=== PATIENT | female | born 1970 | race Two or more races ===

== ENCOUNTER 2021-04-04 13:46 | Inpatient (IN) | payer MEDICAID ==
[~2021-04-04] VITALS: Ht 157.5 cm; Wt 96.2 kg
[2021-04-04] MEDS ORDERED: methylPREDNISolone SOD SUCC 125 MG/2 ML VL IV ONE (14:15)
[2021-04-04 14:37] LABS: Basophils # (auto) 0 10 ^3/uL (0-0.2); Basophils % (auto) 0.2 % (0.0-2.0); Eosinophils # (auto) 0 10 ^3/uL (0-0.8); Eosinophils % (auto) 0.4 % (0.0-7.0); Hematocrit 41.3 % (36.0-46.0); Lymphocytes # (auto) 1.2 10 ^3/uL (0.4-5.4); Lymphocytes % (auto) 16.1 % (10.0-50.0); Mean Corpuscular Hemoglobin 27.3 pg (28.0-32.0); Mean Corpuscular Hgb Conc. 33.8 g/dL (32.0-36.0); Mean Corpuscular Volume 80.6 fL (80.0-100.0); Monocytes # (auto) 0.8 10 ^3/uL (0-1.3); Monocytes % (auto) 11.5 % (0.0-12.0); Neutrophils # (auto) 5.2 10 ^3/uL (1.6-8.6); Neutrophils % (auto) 71.8 % (37.0-80.0); Nucleated Red Blood Cells % 0.1 %; Red Blood Cells 5.12 10^6/uL (4.0-5.20); Red Cell Distribution Width 14.9 % (11.8-14.3); White Blood Cell 7.2 10^3/uL (4.4-10.8)
[2021-04-04 14:54] LABS: Albumin 2.9 g/dL (3.4-5.0); Calcium 8.6 mg/dL (8.5-10.1); Potassium 3.3 mmol/L (3.5-5.1)
[2021-04-04 14:57] LABS: BUN/Creatinine Ratio 18.4; Bilirubin, Total 0.6 mg/dL (0.2-1.0); Total Protein 7.8 g/dL (6.4-8.2)
[2021-04-04] MEDS ORDERED: AZITHROMYCIN 500MG/ 250ML 250 ML IV ONE (17:30)
[2021-04-04] MEDS ORDERED: POTASSIUM CHL 20 Meq TABLET PO ONE (17:45)
[2021-04-04] MEDS ORDERED: MORPHINE SULFATE INJECTION 2 MG/ML SYRG IV PRN (18:30)
[2021-04-04] MEDS ORDERED: NITROGLYCERIN 0.4 MG SL TAB SL PRN (18:30)
[2021-04-04] MEDS ORDERED: REMDESIVIR PER PHARMACY 0 ML IV SCH (19:45)
[2021-04-04] MEDS ORDERED: ACETAMINOPHEN 500 MG TAB PO PRN (19:45)
[2021-04-04 20:36] LABS: Basophils # (auto) 0 10 ^3/uL (0-0.2); Eosinophils # (auto) 0 10 ^3/uL (0-0.8); Eosinophils % (auto) 0.1 % (0.0-7.0); Lymphocytes # (auto) 0.6 10 ^3/uL (0.4-5.4); Nucleated Red Blood Cells % 0.1 %
[2021-04-04 20:38] LABS: Basophils % (auto) 0.1 % (0.0-2.0); Hematocrit 40.9 % (36.0-46.0); Hemoglobin 13.6 g/dL (12.2-16.2); Lymphocytes % (auto) 11.4 % (10.0-50.0); Mean Corpuscular Hemoglobin 26.9 pg (28.0-32.0); Mean Corpuscular Hgb Conc. 33.3 g/dL (32.0-36.0); Mean Corpuscular Volume 80.7 fL (80.0-100.0); Monocytes # (auto) 0.2 10 ^3/uL (0-1.3); Monocytes % (auto) 4.3 % (0.0-12.0); Neutrophils # (auto) 4.6 10 ^3/uL (1.6-8.6); Neutrophils % (auto) 84.1 % (37.0-80.0); Red Blood Cells 5.07 10^6/uL (4.0-5.20); Red Cell Distribution Width 14.9 % (11.8-14.3); White Blood Cell 5.5 10^3/uL (4.4-10.8)
[2021-04-04 20:51] LABS: Albumin 2.9 g/dL (3.4-5.0); Calcium 8.8 mg/dL (8.5-10.1)
[2021-04-04 21:00] LABS: BUN/Creatinine Ratio 20.5; Bilirubin, Total 0.5 mg/dL (0.2-1.0); CRP High Sensitivity 7.32 mg/dL (< 0.3); Total Protein 7.9 g/dL (6.4-8.2)
[2021-04-04 21:19] LABS: Thyroid Stimulating Hormone 0.13 uIU/mL (0.358-3.74)
[2021-04-04] MEDS: ENOXAPARIN SOD 40 MG/0.4 ML SYRINGE SC SCH (22:00)
[2021-04-04] MEDS: BUDESONIDE (INHALATION) 180 MCG IH IN SCH (22:00)
[2021-04-05] MEDS ORDERED: HYDROcodone-ACET 5/325MG TAB PO PRN (04:15)
[2021-04-05] MEDS ORDERED: FAMOTIDINE (10MG/ML) 2ML VL IV ONE (04:15)
[2021-04-05] MEDS ORDERED: MORPHINE SULFATE INJECTION 2 MG/ML SYRG IV PRN (04:15)
[2021-04-05] MEDS ORDERED: HYDROcodone-ACET 5/325MG TAB PO ONE (04:15)
[2021-04-05] MEDS ORDERED: DEXTROSE (50%) 50ML SYRG IV PRN (04:15)
[2021-04-05] MEDS ORDERED: ALBUMIN 25% 100 ML IV ONE (04:15)
[2021-04-05] MEDS ORDERED: ONDANSETRON HCL 4 MG/2 ML VIAL IV PRN (04:15)
[2021-04-05] MEDS ORDERED: DOCUSATE SOD 100 MG CAP PO PRN (04:15)
[2021-04-05 04:19] VITALS: BP 143/81
[2021-04-05 05:00] VITALS: BP 120/63
[2021-04-05 05:25] LABS: Basophils # (auto) 0 10 ^3/uL (0-0.2); Basophils % (auto) 0.8 % (0.0-2.0); Eosinophils # (auto) 0 10 ^3/uL (0-0.8); Hematocrit 39.3 % (36.0-46.0); Hemoglobin 13.4 g/dL (12.2-16.2); Lymphocytes # (auto) 0.7 10 ^3/uL (0.4-5.4); Lymphocytes % (auto) 14.8 % (10.0-50.0); Mean Corpuscular Hemoglobin 27.2 pg (28.0-32.0); Mean Corpuscular Hgb Conc. 34.1 g/dL (32.0-36.0); Mean Corpuscular Volume 79.7 fL (80.0-100.0); Monocytes # (auto) 0.4 10 ^3/uL (0-1.3); Monocytes % (auto) 9.7 % (0.0-12.0); Neutrophils # (auto) 3.3 10 ^3/uL (1.6-8.6); Neutrophils % (auto) 74.7 % (37.0-80.0); Nucleated Red Blood Cells % 0.2 %; Red Blood Cells 4.93 10^6/uL (4.0-5.20); Red Cell Distribution Width 14.8 % (11.8-14.3); White Blood Cell 4.4 10^3/uL (4.4-10.8)
[2021-04-05 05:40] LABS: INR 1.08 (0.9-1.15); Partial Thromboplastin Time 27.6 sec (23.6-33.0)
[2021-04-05 05:49] LABS: Potassium 3.9 mmol/L (3.5-5.1)
[2021-04-05 05:56] LABS: Albumin 2.7 g/dL (3.4-5.0); Bilirubin, Total 0.4 mg/dL (0.2-1.0); Calcium 8.6 mg/dL (8.5-10.1); Total Protein 7.5 g/dL (6.4-8.2)
[2021-04-05] MEDS ORDERED: FUROSEMIDE 20 MG/2 ML VIAL IV SCH (06:00)
[2021-04-05] MEDS: ACCU-CHEK COMFORT CURVE STRIP VI SCH ×4 (06:33→22:31)
[2021-04-05] MEDS: InsuLIN REG 1unit/0.01ml Soln (100units/ml) SC SCH ×4 (06:54→22:33)
[2021-04-05 08:30] VITALS: BP 117/74
[2021-04-05] MEDS: AZITHROMYCIN 500MG/ 250ML 250 ML IV SCH (09:52)
[2021-04-05] MEDS: FAMOTIDINE (10MG/ML) 2ML VL IV SCH (09:52)
[2021-04-05] MEDS: DexAMETHasone SOD PHOS 10MG/1ML VIAL INJ IV SCH (09:52)
[2021-04-05] MEDS: ZINC SULFATE 220mg CAP or TAB PO SCH (09:52)
[2021-04-05] MEDS: CHOLECALCIFEROL (VITD3) 2,000 UNIT CAP/TAB PO SCH (09:55)
[2021-04-05] MEDS: ASCORBIC ACID 1,000 MG TAB PO SCH (09:55)
[2021-04-05] MEDS: ENOXAPARIN SOD 40 MG/0.4 ML SYRINGE SC SCH ×2 (09:56→22:30)
[2021-04-05 09:59] LABS: Free T4 (Free Thyroxine) 1.74 ng/dL (0.89-1.76)
[2021-04-05 10:00] LABS: Free T3 2.08 pg/mL (2.3-4.2)
[2021-04-05] MEDS ORDERED: POTASSIUM CHL 20 Meq TABLET PO SCH (10:00)
[2021-04-05] MEDS: ASPirin 81 mg TAB PO SCH (10:00)
[2021-04-05] MEDS: BUDESONIDE (INHALATION) 180 MCG IH IN SCH ×2 (10:00→20:30)
[2021-04-05] MEDS ORDERED: ALBUMIN 25% 100 ML IV SCH (12:00)
[2021-04-05 12:30] VITALS: BP 120/72
[2021-04-05] MEDS ORDERED: REMDESIVIR 200 MG in NS 210ml LOADING DOSE ADULT IV ONE (15:00)
[2021-04-05 17:00] VITALS: BP 105/60
[2021-04-05] MEDS: ALBUTEROL SULF HFA 90MCG INH 200DOSE IN PRN (20:30)
[2021-04-05 22:00] VITALS: BP 118/66
[2021-04-05] MEDS: ATORVASTATIN 20 MG TAB PO SCH (22:30)
[2021-04-06 05:00] VITALS: BP_SYST 122; BP_SYST 135; BP_DIAS 67; BP_DIAS 69
[2021-04-06] MEDS: ACCU-CHEK COMFORT CURVE STRIP VI SCH ×4 (05:59→21:45)
[2021-04-06] MEDS: InsuLIN REG 1unit/0.01ml Soln (100units/ml) SC SCH ×4 (06:15→21:48)
[2021-04-06 07:24] LABS: Potassium 3.4 mmol/L (3.5-5.1)
[2021-04-06 08:02] LABS: BUN/Creatinine Ratio 41.5; Bilirubin, Total 0.5 mg/dL (0.2-1.0); Calcium 9.5 mg/dL (8.5-10.1)
[2021-04-06 09:00] VITALS: BP 126/86
[2021-04-06] MEDS: FAMOTIDINE (10MG/ML) 2ML VL IV SCH (10:00)
[2021-04-06] MEDS: CHOLECALCIFEROL (VITD3) 2,000 UNIT CAP/TAB PO SCH (10:00)
[2021-04-06] MEDS: DexAMETHasone SOD PHOS 10MG/1ML VIAL INJ IV SCH (10:00)
[2021-04-06] MEDS: ASCORBIC ACID 1,000 MG TAB PO SCH (10:00)
[2021-04-06] MEDS: ASPirin 81 mg TAB PO SCH (10:00)
[2021-04-06] MEDS: ENOXAPARIN SOD 40 MG/0.4 ML SYRINGE SC SCH ×2 (10:00→21:45)
[2021-04-06] MEDS: AZITHROMYCIN 500MG/ 250ML 250 ML IV SCH (10:00)
[2021-04-06] MEDS: ZINC SULFATE 220mg CAP or TAB PO SCH (10:00)
[2021-04-06] MEDS: BUDESONIDE (INHALATION) 180 MCG IH IN SCH ×2 (10:26→10:28)
[2021-04-06] MEDS: ALBUTEROL SULF HFA 90MCG INH 200DOSE IN PRN ×3 (10:27→21:25)
[2021-04-06] MEDS ORDERED: PROMETHAZINE W/CODEINE 5 ML ORAL SYRUP PO PRN (11:30)
[2021-04-06] MEDS ORDERED: POTASSIUM CHL 20 Meq TABLET PO ONE (11:30)
[2021-04-06 13:00] VITALS: BP 128/88
[2021-04-06] MEDS ORDERED: REMDESIVIR 100mg 100 MG in SODIUM CHL 0.9% 230 ML IV SCH (15:00)
[2021-04-06 17:00] VITALS: BP 115/77
[2021-04-06] MEDS: REMDESIVIR 100mg 100 MG in SODIUM CHL 0.9% 230 ML IV SCH (18:34)
[2021-04-06] MEDS: ATORVASTATIN 20 MG TAB PO SCH (21:45)
[2021-04-06 22:00] VITALS: BP 120/73
[2021-04-07 05:00] VITALS: BP 132/82
[2021-04-07] MEDS: InsuLIN REG 1unit/0.01ml Soln (100units/ml) SC SCH ×4 (06:11→21:21)
[2021-04-07] MEDS: ACCU-CHEK COMFORT CURVE STRIP VI SCH ×4 (06:11→21:20)
[2021-04-07] MEDS: LEVOTHYROXINE SODIUM 112 MCG TAB PO SCH (06:11)
[2021-04-07] MEDS: BUDESONIDE (INHALATION) 180 MCG IH IN SCH ×2 (06:18→10:00)
[2021-04-07 06:56] LABS: Albumin 2.7 g/dL (3.4-5.0); Calcium 8.4 mg/dL (8.5-10.1)
[2021-04-07 07:02] LABS: BUN/Creatinine Ratio 30.8; Bilirubin, Total 0.4 mg/dL (0.2-1.0); Total Protein 6.8 g/dL (6.4-8.2)
[2021-04-07 09:00] VITALS: BP 131/77
[2021-04-07] MEDS: AZITHROMYCIN 500MG/ 250ML 250 ML IV SCH (09:54)
[2021-04-07] MEDS: DexAMETHasone SOD PHOS 10MG/1ML VIAL INJ IV SCH (09:54)
[2021-04-07] MEDS: CHOLECALCIFEROL (VITD3) 2,000 UNIT CAP/TAB PO SCH (09:54)
[2021-04-07] MEDS: ASPirin 81 mg TAB PO SCH (09:54)
[2021-04-07] MEDS: ENOXAPARIN SOD 40 MG/0.4 ML SYRINGE SC SCH ×2 (09:54→21:20)
[2021-04-07] MEDS: ASCORBIC ACID 1,000 MG TAB PO SCH (09:54)
[2021-04-07] MEDS: ZINC SULFATE 220mg CAP or TAB PO SCH (09:54)
[2021-04-07] MEDS: FAMOTIDINE (10MG/ML) 2ML VL IV SCH (09:54)
[2021-04-07] MEDS: ALBUTEROL SULF HFA 90MCG INH 200DOSE IN PRN ×2 (12:34→21:47)
[2021-04-07 13:00] VITALS: BP 136/82
[2021-04-07] MEDS: REMDESIVIR 100mg 100 MG in SODIUM CHL 0.9% 230 ML IV SCH (15:30)
[2021-04-07 17:00] VITALS: BP 133/77
[2021-04-07] MEDS: SALINE 0.65 % NASAL SPRAY 45ML BOTTLE EACHNOSTRI SCH (21:19)
[2021-04-07] MEDS: ATORVASTATIN 20 MG TAB PO SCH (21:19)
[2021-04-07 22:06] VITALS: BP 119/67
[2021-04-08 05:33] VITALS: BP 149/84
[2021-04-08] MEDS: InsuLIN REG 1unit/0.01ml Soln (100units/ml) SC SCH ×4 (06:01→21:03)
[2021-04-08] MEDS: LEVOTHYROXINE SODIUM 112 MCG TAB PO SCH (06:01)
[2021-04-08] MEDS: ACCU-CHEK COMFORT CURVE STRIP VI SCH ×4 (06:01→21:03)
[2021-04-08] MEDS: SALINE 0.65 % NASAL SPRAY 45ML BOTTLE EACHNOSTRI SCH ×4 (06:01→21:02)
[2021-04-08] MEDS: ALBUTEROL SULF HFA 90MCG INH 200DOSE IN PRN ×2 (07:09→19:18)
[2021-04-08 07:25] LABS: Potassium 3.8 mmol/L (3.5-5.1)
[2021-04-08 07:34] LABS: Albumin 2.9 g/dL (3.4-5.0); BUN/Creatinine Ratio 46.2; Bilirubin, Total 0.4 mg/dL (0.2-1.0); Calcium 8.4 mg/dL (8.5-10.1)
[2021-04-08 09:00] VITALS: BP 146/78
[2021-04-08] MEDS: ASCORBIC ACID 1,000 MG TAB PO SCH (09:08)
[2021-04-08] MEDS: DexAMETHasone SOD PHOS 10MG/1ML VIAL INJ IV SCH (09:08)
[2021-04-08] MEDS: FAMOTIDINE 20 MG TAB PO SCH (09:08)
[2021-04-08] MEDS: ASPirin 81 mg TAB PO SCH (09:08)
[2021-04-08] MEDS: CHOLECALCIFEROL (VITD3) 2,000 UNIT CAP/TAB PO SCH (09:08)
[2021-04-08] MEDS: ENOXAPARIN SOD 40 MG/0.4 ML SYRINGE SC SCH ×2 (09:08→21:02)
[2021-04-08] MEDS: ZINC SULFATE 220mg CAP or TAB PO SCH (09:08)
[2021-04-08] MEDS: AZITHROMYCIN 500MG/ 250ML 250 ML IV SCH (09:09)
[2021-04-08] MEDS ORDERED: SEMA2INJ SC (12:36)
[2021-04-08] MEDS ORDERED: ASCO500T11 PO (12:36)
[2021-04-08] MEDS ORDERED: LOSA25TA38 PO (12:36)
[2021-04-08] MEDS ORDERED: LEV150T PO (12:36)
[2021-04-08] MEDS ORDERED: CHOL20007 PO (12:36)
[2021-04-08] MEDS ORDERED: LORA10CA12 PO (12:36)
[2021-04-08 13:00] VITALS: BP 141/88
[2021-04-08 14:44] VITALS: BP 122/68
[2021-04-08] MEDS: REMDESIVIR 100mg 100 MG in SODIUM CHL 0.9% 230 ML IV SCH (14:45)
[2021-04-08 17:00] VITALS: BP 136/85
[2021-04-08] MEDS: BUDESONIDE (INHALATION) 180 MCG IH IN SCH (19:17)
[2021-04-08] MEDS: ATORVASTATIN 20 MG TAB PO SCH (21:02)
[2021-04-08 22:16] VITALS: BP 129/72
[2021-04-09 05:16] VITALS: BP 138/84
[2021-04-09] MEDS: SALINE 0.65 % NASAL SPRAY 45ML BOTTLE EACHNOSTRI SCH ×2 (05:34→11:45)
[2021-04-09] MEDS: LEVOTHYROXINE SODIUM 112 MCG TAB PO SCH (06:00)
[2021-04-09] MEDS: ACCU-CHEK COMFORT CURVE STRIP VI SCH ×2 (06:00→11:30)
[2021-04-09] MEDS: InsuLIN REG 1unit/0.01ml Soln (100units/ml) SC SCH ×2 (06:00→11:30)
[2021-04-09 07:01] LABS: Albumin 2.8 g/dL (3.4-5.0); Calcium 8.7 mg/dL (8.5-10.1)
[2021-04-09 07:03] LABS: BUN/Creatinine Ratio 40.9
[2021-04-09 07:06] LABS: Bilirubin, Total 0.4 mg/dL (0.2-1.0); Total Protein 6.7 g/dL (6.4-8.2)
[2021-04-09 09:00] VITALS: BP 139/79
[2021-04-09] MEDS: ZINC SULFATE 220mg CAP or TAB PO SCH (09:35)
[2021-04-09] MEDS: ASCORBIC ACID 1,000 MG TAB PO SCH (09:35)
[2021-04-09] MEDS: FAMOTIDINE 20 MG TAB PO SCH (09:36)
[2021-04-09] MEDS: CHOLECALCIFEROL (VITD3) 2,000 UNIT CAP/TAB PO SCH (09:36)
[2021-04-09] MEDS: ASPirin 81 mg TAB PO SCH (09:36)
[2021-04-09] MEDS: ENOXAPARIN SOD 40 MG/0.4 ML SYRINGE SC SCH (09:36)
[2021-04-09] MEDS: AZITHROMYCIN 500MG/ 250ML 250 ML IV SCH (09:43)
[2021-04-09] MEDS: BUDESONIDE (INHALATION) 180 MCG IH IN SCH (09:49)
[2021-04-09] MEDS: ALBUTEROL SULF HFA 90MCG INH 200DOSE IN PRN (09:50)
[2021-04-09] MEDS ORDERED: DexAMETHasone SOD PHOS 4 MG/1ML SDV INJ IV SCH (10:00)
[2021-04-09] MEDS ORDERED: ASPI-498 OR (12:56)
[2021-04-09] MEDS ORDERED: DEX4T PO (12:56)
[2021-04-09] MEDS ORDERED: CHOL1CAP47 PO (12:56)
[2021-04-09] MEDS ORDERED: ASCO10003 PO (12:56)
[2021-04-09 13:00] VITALS: BP 148/86
[2021-04-09] MEDS: REMDESIVIR 100mg 100 MG in SODIUM CHL 0.9% 230 ML IV SCH (14:36)
[2021-04-09 14:51] VITALS: BP 132/81
== END 2021-04-09 16:40 | disposition home or self-care (01) | DRG 720 ==
LOC: ER 13:46 → TELE 18:20 → TELE-EAST 04-05 02:50
PROVIDERS: ADMIT Hospitalist; ATTEND Internal Medicine
PROC: XW033E5 Introduction of Remdesivir Anti-infective into Peripheral Vein, Percutaneous Approach, New Technology Group 5 (ICD-10-PCS; principal; 2021-04-05)
DX: A41.89 Other specified sepsis (principal); J96.01 Acute respiratory failure with hypoxia; J12.82 Pneumonia due to coronavirus disease 2019; U07.1 COVID-19; D89.834 Cytokine release syndrome, grade 4; J44.0 Chronic obstructive pulmonary disease with (acute) lower respiratory infection; E11.9 Type 2 diabetes mellitus without complications; E66.01 Morbid (severe) obesity due to excess calories; K21.9 Gastro-esophageal reflux disease without esophagitis; K29.70 Gastritis, unspecified, without bleeding; E78.5 Hyperlipidemia, unspecified; E03.9 Hypothyroidism, unspecified; I10 Essential (primary) hypertension; Z68.38 Body mass index [BMI] 38.0-38.9, adult; Z90.710 Acquired absence of both cervix and uterus; Z79.899 Other long term (current) drug therapy; Z82.3 Family history of stroke; Z79.82 Long term (current) use of aspirin
CPT/HCPCS: 36415; 36600; 71045; 80053; 80061; 82270; 82728; 82805; 82962; 83036; 83605; 83615; 83735; 83880; 84100; 84439; 84443; 84481; 84484; 85025; 85379; 85610; 85652; 85730; 86141; 87040; 87426; 93005; 94640; 96365; 96375; 99291; G0378; J1100; J1815; J3490; P9047

== ENCOUNTER 2021-04-26 13:34 | Emergency (ER) | payer MEDICAID, OTHER ==
[~2021-04-26] VITALS: Ht 162.6 cm; Wt 102.5 kg
[~2021-04-26 13:34] MED LIST: ASCO10003 PO; ASCO500T11 PO; ASPI-498 OR; CHOL1CAP47 PO; CHOL20007 PO; DEX4T PO; LEV150T PO; LORA10CA12 PO; LOSA25TA38 PO; SEMA2INJ SC
[2021-04-26 14:15] LABS: Basophils # (auto) 0 10 ^3/uL (0-0.2); Basophils % (auto) 0.4 % (0.0-2.0); Eosinophils # (auto) 0.2 10 ^3/uL (0-0.8); Eosinophils % (auto) 2.1 % (0.0-7.0); Hemoglobin 13.9 g/dL (12.2-16.2); Lymphocytes # (auto) 2.6 10 ^3/uL (0.4-5.4); Lymphocytes % (auto) 29.2 % (10.0-50.0); Mean Corpuscular Hemoglobin 27.4 pg (28.0-32.0); Mean Corpuscular Hgb Conc. 33.1 g/dL (32.0-36.0); Mean Corpuscular Volume 82.8 fL (80.0-100.0); Monocytes # (auto) 0.7 10 ^3/uL (0-1.3); Monocytes % (auto) 8.1 % (0.0-12.0); Neutrophils # (auto) 5.3 10 ^3/uL (1.6-8.6); Neutrophils % (auto) 60.2 % (37.0-80.0); Red Blood Cells 5.07 10^6/uL (4.0-5.20); Red Cell Distribution Width 16.3 % (11.8-14.3); White Blood Cell 8.8 10^3/uL (4.4-10.8)
[2021-04-26 14:45] LABS: Alanine Aminotransferase 57 U/L (13-56); Albumin 3.3 g/dL (3.4-5.0); Anion Gap 6 (5-15); Aspartate Aminotransferase 42 U/L (15-37); BUN/Creatinine Ratio 14.3; Blood Urea Nitrogen 9 mg/dL (7-18); Calcium 8.6 mg/dL (8.5-10.1); Carbon Dioxide 25 mmol/L (21-32); Chloride 104 mmol/L (98-107); GFR African American 129 mL/min; GFR Non-African American 107 mL/min; Glucose 191 mg/dL (74-106); Potassium 4.5 mmol/L (3.5-5.1); Sodium 135 mmol/L (136-145)
[2021-04-26 14:47] LABS: Alkaline Phosphatase 99 U/L (45-117); Bilirubin, Total 0.5 mg/dL (0.2-1.0); Total Protein 7.4 g/dL (6.4-8.2)
[2021-04-26 15:06] VITALS: BP 115/55
== END 2021-04-26 15:11 | disposition home or self-care (01) ==
LOC: ER 13:34
DX: F41.9 Anxiety disorder, unspecified (principal); E11.9 Type 2 diabetes mellitus without complications; E78.5 Hyperlipidemia, unspecified; I10 Essential (primary) hypertension; Z90.710 Acquired absence of both cervix and uterus; Z90.89 Acquired absence of other organs; Z88.8 Allergy status to other drugs, medicaments and biological substances; V43.52XA Car driver injured in collision with other type car in traffic accident, initial encounter; Y93.89 Activity, other specified; Y92.410 Unspecified street and highway as the place of occurrence of the external cause; Y99.8 Other external cause status
CPT/HCPCS: 36415; 70450; 80053; 85025; 93005

== ENCOUNTER 2023-12-30 08:28 | Emergency (ER) | payer MEDICAID ==
[~2023-12-30] VITALS: Ht 162.6 cm; Wt 104.8 kg
[~2023-12-30 08:28] MED LIST changes: +BACDST PO; +IBUP-1456 PO; +LOS25T PO; +LOSA-533 PO; -LOSA25TA38 PO; +MAGN241.6 PO; +SEMA4INJ SC
--- NOTE | 2023-12-30 09:24 | ED.PDOC ---
Back pain HPI HPI Comments A 53 YEAR OLD FEMALE PRESENTS TO THE ED WITH COMPLAINT OF LOWER BACK PAIN THAT RADIATES DOWN RIGHT LEG. PATIENT STATES SHE HAS A HISTORY OF DEGENERATIVE DISEASE AND CHRONIC LOWER BACK PAIN AND NOTES SHE HAS BEEN EXPERIENCING LOWER BACK PAIN THAT RADIATES DOWN HER RIGHT LEG FOR THE PAST 4 DAYS. PATIENT REPORTS SHE HAS TRIED TAKING IBUPROFEN AND NAPROXEN FOR HER PAIN, BUT NOTES THERE HAS BEEN NO IMPROVEMENT. PATIENT NOTES SHE WENT TO PHYSICAL THERAPY 4 DAYS AGO AND NOTES HER PAIN FLARED UP SHORTLY AFTER. PATIENT IS REQUESTING PAIN MANAGEMENT HERE IN THE ED. PATIENT DENIES SADDLE ANESTHESIA, URINARY INCONTINENCE, BOWEL INCONTINENCE, DYSURIA, HEMATURIA, FEVER, CHILLS, SHORTNESS OF BREATH, CHEST PAIN, ABDOMINAL PAIN, NAUSEA, VOMITING, HEADACHE, OR OTHER COMPLAINTS. NO OTHER SYMPTOMS OR MODIFYING FACTORS AT THIS TIME. PATIENT IS ALERT, ORIENTED X 4, AND HAS STEADY GAIT. Chief Complaint: Back Pain Time Seen by MD: 08:46 Reviewed Notes: Nurses Notes, Medications, Allergies Allergies: Coded Allergies: Metformin (Verified Allergy, Severe, RASH, 04/04/21) Influenza Vaccines (Unverified Allergy, Unknown, coma, 12/26/22) per patinet, when she was a child she had Coma after 1st vaccination. The 2nd Flu shot in 2011, 3rd Flu shot in 2014, condition has been worsen after taking vaccination. Patient refuses all vaccination. Glipizide (Unverified Adverse Reaction, Unknown, 12/26/22) per patient Uncoded Allergies: LABROXTRICIDE (Allergy, Unknown, 12/26/22) Home Meds Active Scripts Tramadol Hcl (Tramadol Hcl) 50 Mg Tab, 50 MG PO TID, #20 TAB Prov:CARRIE LAIRD 12/30/23 Sulfamethoxazole W/Trimethopri (Bactrim Ds Tablet) 1 Tab Tb, 1 TAB PO BID for 10 Days, #20 TAB Prov:PRESTON ANNE MD 05/15/23 Ibuprofen (Ibuprofen) 800 Mg Tab, 1 TAB PO TID, #30 TAB Prov:CARRIE LAIRD 09/15/22 Dexamethasone (Decadron) 4 Mg Tb, 4 TAB PO DAILY for 7 Days, #7 TAB Prov:TREVON SOTO MD 04/09/21 Aspirin (ASPIRIN 81) 81 Mg Tab, 81 MG OR DAILY for 30 Days, #30 TAB Prov:TREVON SOTO MD 04/09/21 Cholecalciferol (Vitamin D3 Super Strength) 2,000 Unit Cap, 4000 UNIT PO DAILY for 30 Days, #30 CAP Prov:TREVON SOTO MD 04/09/21 Ascorbic Acid (Gnp Vitamin C W/Loni Hips) 1,000 Mg Tab, 500 MG PO DAILY for 30 Days, #30 TAB Prov:TREVON SOTO MD 04/09/21 Reported Medications Levothyroxine Sodium (Synthroid) 150 Mcg Tab, 1 TAB PO DAILYPRN 01/22/22 Semaglutide (Ozempic) 4 Mg/3 Ml Inj, 1 MG SC QWEEKLY 01/22/22 Magnesium Oxide (mg Supplement (Magnesium-Oxide) 400 Mg Tab, 1 TAB PO DAILYPRN 01/22/22 Losartan Potassium (Losartan Potassium) 25 Mg Tab, 1 TAB PO DAILYPRN 01/22/22 Cholecalciferol (VITAMIN D3) 2,000 Unit Tab, 1 TAB PO DAILY, #30 TAB 5 Refills 04/08/21 Ascorbic Acid (VITAMIN C TABLET) 500 Mg Tb, 1 TAB PO DAILY, #30 TAB 3 Refills 04/08/21 Loratadine (Loratadine) 10 Mg Cap, 10 MG PO DAILY, CAP 04/08/21 Losartan Potassium (Losartan Potassium) 25 Mg Tab, 25 MG PO DAILY for 30 Days, MG 04/08/21 Levothyroxine Sodium (Synthroid) 150 Mcg Tab, 1 TAB PO DAILY, #30 TAB 5 Refills 04/08/21 Semaglutide (Ozempic) 2 Mg/1.5 Ml Inj, 1 MG SC, INJ 04/08/21 Information Source: Patient Mode of Arrival: Ambulatory Timing: Days Duration: Since onset, Days Location of Back pain: (B) Lumbar Radiates to: Anterior: (R) Buttocks, (R) Calf, (R) Thigh Radiates to: Posterior: (R) Buttocks, (R) Calf, (R) Thigh Radiates to: Medial: (R) Buttocks, (R) Calf, (R) Thigh Radiates to: Lateral: (R) Buttocks, (R) Calf, (R) Thigh Severity: Moderate Prehospital treatment: None Quality: Aching, Burning, Cramping Onset: Spontaneous History of: Chronic Back Pain Modifying Factors: Movement Associated signs and symptoms: None Past Medical History PAST MEDICAL HISTORY: DM, High Lipids, HTN, Kidney Stones, Thyroid Past Medical History (Other): DDD, CHRONIC LOWER BACK PAIN Surgical History: , Hysterectomy, Thyroidectomy OIL PIPELINE 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 History Family History Family History: Reviewed,noncontributory to illness, Family hx of DM, Family hx of heart katya, Family hx of stroke Social History Smoker: Non-Smoker Alcohol: Denies ETOH Use Drugs: Denies Drug Use Lives In: Home Constitutional: denies: chills, diaphoresis, fatigue, fever, malaise, sweats, weakness, others EENTM: denies: blurred vision, double vision, ear bleeding, ear discharge, ear drainage, ear pain, ear ringing, eye pain, eye redness, hearing loss, mouth pain, mouth swelling, nasal discharge, nose bleeding, nose congestion, nose pa in, photophobia, tearing, throat pain, throat swelling, voice changes, others Respiratory: denies: cough, hemoptysis, orthopnea, SOB at rest, shortness of breath, SOB with excertion, stridor, wheezing, others Cardiovascular: denies: chest pain, dizzy spells, diaphoresis, Dyspnea on exertion, edema, irregular heart beat, left arm pain, lightheadedness, palpitations, PND, syncope, others Gastrointestinal: denies: abdomen distended, abdominal pain, blood streaked bowels, constipated, diarrhea, dysphagia, difficulty swallowing, hematemesis, melena, nausea, poor appetite, poor fluid intake, rectal bleeding, rectal pain, vomiting, others Genitourinary: denies: abnormal vagina bleeding, burning, dyspareunia, dysuria, flank pain, frequency, hematuria, incontinence, pain, , vagina discharge, urgency, others Neurological: denies: dizziness, fainting, headache, left sided numbness, left sided weakness, numbness, paresthesia, pre-existing deficit, right sided numbness, right sided weakness, seizure, speech problems, tingling, tremors, weakness, others Musculoskeletal: reports: back pain (LOWER BACK PAIN THAT RADIATES DOWN RIGHT LEG), muscle pain; denies: gout, joint pain, joint swelling, muscle stiffness, neck pain, others Integumetry: denies: bruises, change in color, change in hair/nails, dryness, laceration, lesions, lumps, rash, wounds, others Allergic/Immunocompromised: denies: Difficulty Healing, Frequent Infections, Hives, Itching, others Hematologic/Lymphatic: denies: anemia, blood clots, easy bleeding, easy bruising, swollen glands, others Endocrine: denies: excessive hunger, excessive sweating, excessive thirst, excessive urination, flushing, intolerance to cold, intolerance to heat, unexplained weight gain, unexplained weight loss, others Psychiatric: denies: anxiety, bipolar disorder, depression, hopeless, panic disorder, schizophrenia, sleepless, suicidal, others All Other Systems: Reviewed and Negative Physical Exam General Appearance: Obese HEENT: Normal ENT Inspection, PERRL/EOMI, Pharynx Normal, TMs Normal Neck: Full Range of Motion, Non-Tender, Normal, Normal Inspection Respiratory: Chest Non-Tender, Lungs Clear, No Accessory Muscle Use, No Respiratory Distress, Normal Breath Sounds Cardiovascular: No Edema, No JVD, No Murmur, No Gallop, Normal Peripheral Pulses, Regular Rate/Rhythm Breast Exam: Deferred Gastrointestinal: No Organomegaly, Non Tender, No Pulsatile Mass, Normal Bowel Sounds, Soft Genitalia: Deferred Pelvic: Deferred Rectal: Deferred Extremities: No calf tenderness, Normal capillary refill, Normal inspection, Normal range of motion, Non-tender, No pedal edema Musculoskeletal : Location: Bilateral Extremity Location: Back Apperance: Tenderness: Moderate (MUSCLE SPASM ON LOW BACK, NO BONY TENDERNESS, SWELLING, ERYTHEMA AND DEFORMITY. ) Neurologic: Alert, community liaison II-XII nml as Tested, No Motor Deficits, Normal Affect, Normal Mood, No Sensory Deficits Cerebellar Function: Normal Reflexes: Normal Skin: Dry, Normal Color, Warm Peripheral Pulses: 2+ carotid (R), 2+ carotid (L), 2+ dorsalis pedis (R), 2+ dorsalis pedis (L) Lymphatic: No Adenopathy Was a procedure done? Was a procedure done?: No Back Pain Differential Dx Differential Diagnosis: DJD, Musculoskeletal Pain, Strain Other Differential Diagnosis DDD, LUMBAR RADICULOPATHY, ACUTE EXACERBATION OF CHRONIC LOWER BACK PAIN, PAIN MANAGEMENT X-Ray, Labs, Meds, VS Vital Signs Date Time Temp Pulse Resp B/P (MAP) Pulse Ox O2 Delivery O2 Flow Rate FiO2 12/30/23 09:30 96 20 167/74 12/30/23 08:45 98.4 96 20 167/74 (105) 94 12/30/23 08:28 98.4 96 20 167/74 (105) 94 98.4 Current Medications Medications (Trade) Dose Ordered Sig/Pradeep Route Start Time Stop Time Status Last Admin Meperidine HCl (Demerol Injection) 50 mg ONCE ONCE IM 12/30/23 09:30 12/30/23 09:31 DC 12/30/23 09:30 Ondansetron HCl (Zofran Po) 4 mg ONCE ONCE PO 12/30/23 09:30 12/30/23 09:31 DC 12/30/23 09:29 X-Ray, Labs, Meds, VS Comment TREATMENT: DEMEROL 50 MG IM, ZOFRAN 4 MG P.O. BASED ON THE PATIENT'S PERSISTENCE OF SYMPTOMS, THE PATIENT SOUGHT OUT ED CONSULT. BASED ON MY PHYSICAL EXAMINATION AND PATIENT'S HISTORY OF CHRONIC BACK PAIN, THERE IS NO NEW INJURY TO THE PATIENT'S BACK. THE PATIENT DENIES ANY NUMBNESS, WEAKNESS, TINGLING SENSATION, URINARY/BOWEL INCONTINENCE. THERE ARE NO SIGNS AND SYMPTOMS OF CAUDA EQUINA. THE PATIENT STATES THAT THE PAIN IS THE SAME WHEN THEY HAVE BACK PAIN FLARE-UP AND THAT THEY ONLY NEED PAIN MEDICATION IN THE ER. AT THIS POINT, THERE IS NO INDICATION FOR ANY IMAGING. THE PATIENT WAS ADVISED TO FOLLOW UP WITH ORTHO SPECIALIST FOR THEIR CHRONIC LOWER BACK PAIN AND PAIN MANAGEMENT DOCTOR FOR PAIN CONTROL. PATIENT WAS GIVEN DEMEROL 50 MG IM AND ZOFRAN 4 MG P.O. FOR PAIN MEDICATION. OVERALL PATIENT'S VITAL SIGNS ARE STABLE AND THE PATIENT WILL BE DISCHARGED HOME. Time of 1ST Reevaluation: 10:00 Reevaluation 1ST: Improved Time of 2ND Reevaluation: 10:20 Reevaluation 2ND: Improved Patient Education/Counseling: Diagnosis, Treatment, Need For Follow Up Family Education/Counseling: Diagnosis, Treatment, Need For Follow Up Comments PATIENT REPORTED FEELING MUCH BETTER AFTER RECEIVING INJECTION. PATIENT PAIN WAS NOTED TO HAVE DECREASED. Medical Screening: No EMC Exist At This Time Departure 1 Departure Time of Disposition: 10:20 Impression: Primary Impression: Acute exacerbation of chronic low back pain Additional Impression: Pain management Disposition: 01 HOME / SELF CARE / HOMELESS Condition: Stable Additional Instructions: FOLLOW-UP WITH PCP IN 1 TO 2 DAYS FOR MRI STUDY. TAKE MEDICATIONS PRESCRIBED. RETURN TO ED FOR ANY NEW OR WORSENING SYMPTOMS. e-Prescriptions Tramadol Hcl (Tramadol Hcl) 50 Mg Tab 50 MG PO TID, #20 TAB Prov: CARRIE LAIRD 12/30/23 Discharged With: Self, Spouse Critical Care Note Critical Care Time?: No Stability Stability form required: No I personally scribed for CARRIE LAIRD ([email or web address]) on 12/30/23 at 09:24. Electronically submitted by Ranulfo Valles ([email or web address]). CARRIE LAIRD Dec 30, 2023 09:24
[2023-12-30] MEDS: ONDANSETRON ODT 4 MG TAB PO ONE (09:29)
[2023-12-30] MEDS: MEPERIDINE HCL (50 MG/ML) 1 ML VIAL IM ONE (09:30)
[2023-12-30] MEDS ORDERED: TRAM50TA2 PO (09:52)
[2023-12-30 10:22] VITALS: TEMP 98.4; O2SAT 95
[2023-12-30 10:23] VITALS: BP 131/74; PULSE 76; RESP 16
== END 2023-12-30 10:23 | disposition home or self-care (01) ==
LOC: ER 08:28
DX: G89.29 Other chronic pain (principal); M54.50 Low back pain, unspecified; I10 Essential (primary) hypertension; E11.9 Type 2 diabetes mellitus without complications; E78.5 Hyperlipidemia, unspecified; Z90.710 Acquired absence of both cervix and uterus; Z98.890 Other specified postprocedural states; Z88.7 Allergy status to serum and vaccine; Z88.8 Allergy status to other drugs, medicaments and biological substances; Z79.85 Long-term (current) use of injectable non-insulin antidiabetic drugs; Z79.82 Long term (current) use of aspirin; Z79.52 Long term (current) use of systemic steroids; Z79.1 Long term (current) use of non-steroidal anti-inflammatories (NSAID); Z79.899 Other long term (current) drug therapy
CPT/HCPCS: 96372; 99283; J2175; Q0162